=== PATIENT | female | born 1930 | race Two or more races ===

== ENCOUNTER 2017-11-15 06:36 | Emergency (ER) | payer OTHER ==
[~2017-11-15] VITALS: Ht 149.9 cm; Wt 61.2 kg
[2017-11-15 06:43] VITALS: Ht 149.9 cm; Wt 61.2 kg
[2017-11-15 08:32] VITALS: BP 154/62
== END 2017-11-15 08:37 | disposition home or self-care (01) ==
LOC: ED 06:36
DX: S01.81XA Laceration without foreign body of other part of head, initial encounter (principal); E78.00 Pure hypercholesterolemia, unspecified; I25.2 Old myocardial infarction; Z86.73 Personal history of transient ischemic attack (TIA), and cerebral infarction without residual deficits; W22.8XXA Striking against or struck by other objects, initial encounter; Y93.89 Activity, other specified; Y99.8 Other external cause status; Y92.89 Other specified places as the place of occurrence of the external cause

== ENCOUNTER 2018-03-12 21:10 | Emergency (ER) | payer OTHER ==
[~2018-03-12] VITALS: Ht 152.4 cm; Wt 55.8 kg
[2018-03-12 21:27] VITALS: Ht 152.4 cm; Wt 55.8 kg
[2018-03-12 23:34] VITALS: BP 135/76
== END 2018-03-12 23:34 | disposition home or self-care (01) ==
LOC: ED 21:10
DX: R04.0 Epistaxis (principal); E78.00 Pure hypercholesterolemia, unspecified; E11.9 Type 2 diabetes mellitus without complications; F03.90 Unspecified dementia, unspecified severity, without behavioral disturbance, psychotic disturbance, mood disturbance, and anxiety; I25.2 Old myocardial infarction

== ENCOUNTER 2018-05-11 13:32 | Inpatient (IN) | payer OTHER ==
[~2018-05-11] VITALS: Ht 147.3 cm; Wt 46.0 kg
[2018-05-11 13:33] VITALS: Ht 147.3 cm; Wt 46.0 kg
[2018-05-11 14:50] LABS: BASOPHIL % 0.2 % (0-2)
[2018-05-11 14:56] LABS: PLATELET COUNT 129 x10^3mcL (130-400); RED CELL DISTRIBUTION WIDTH 15.5 % (11.5-14.5)
[2018-05-11 15:04] LABS: ALBUMIN 4.2 g/dL (3.4-5.0); ALKALINE PHOSPHATASE 109 U/L (46-116); ALT/SGPT 21 U/L (14-59); AST/SGOT 19 U/L (15-37); BILIRUBIN TOTAL 0.6 mg/dL (0.20-1.00); CALCIUM 9.5 mg/dL (8.5-10.1); CARBON DIOXIDE 31.5 mmol/L (21-32); CHLORIDE SERUM 101 mmol/L (98-107); POTASSIUM SERUM 4.8 mmol/L (3.5-5.1); SODIUM SERUM 141 mmol/L (136-145)
[2018-05-11 15:06] LABS: TOTAL PROTEIN, SERUM 8.5 g/dL (6.4-8.2)
[2018-05-11 15:11] LABS: UA SPECIFIC GRAVITY <=1.005 (1.005-1.035); microscopic required? YES; urine erythrocyte TRACE (NEGATIVE)
[2018-05-11] MEDS ORDERED: FUROSEMIDE20 MG PO (15:23)
[2018-05-11] MEDS ORDERED: LISINOPRIL10 MG PO (15:23)
[2018-05-11] MEDS ORDERED: LIPI10 PO (15:23)
[2018-05-11] MEDS ORDERED: XARELTO10 M1 PO (15:24)
[2018-05-11] MEDS ORDERED: LANTUS SOLOS100 U/M1 SQ (15:28)
[2018-05-11] MEDS ORDERED: ASPIR 8181 MG PO (15:29)
[2018-05-11 15:37] LABS: GLUCOSE SERUM 749 mg/dL (74-106)
[2018-05-11 18:12] VITALS: BP 179/61
[2018-05-11 19:25] VITALS: BP 121/49
[2018-05-11 20:05] LABS: CHOLESTEROL/HDL RATIO 3.1
[2018-05-11 20:15] VITALS: BP 154/46
[2018-05-11 20:45] VITALS: BP 155/50
[2018-05-11 21:08] LABS: MAGNESIUM 2.8 mg/dL (1.8-2.4); PHOSPHOROUS 3.9 mg/dL (2.5-4.9)
[2018-05-12 05:58] VITALS: BP 144/46
[2018-05-12 07:21] LABS: BASOPHIL % 0.4 % (0-2); PLATELET COUNT 134 x10^3mcL (130-400)
[2018-05-12 07:23] LABS: RED CELL DISTRIBUTION WIDTH 15.8 % (11.5-14.5)
[2018-05-12 07:55] LABS: CALCIUM 8.8 mg/dL (8.5-10.1); CARBON DIOXIDE 28.4 mmol/L (21-32); CHLORIDE SERUM 119 mmol/L (98-107); CREATININE SERUM 1.4 mg/dL (0.6-1.0); GLUCOSE SERUM 188 mg/dL (74-106); POTASSIUM SERUM 3.6 mmol/L (3.5-5.1); SODIUM SERUM 158 mmol/L (136-145)
[2018-05-12 08:33] VITALS: BP 155/48
[2018-05-12 17:03] VITALS: BP 180/58
[2018-05-12 18:35] VITALS: BP 154/61
[2018-05-12 18:51] LABS: CALCIUM 8.3 mg/dL (8.5-10.1); CARBON DIOXIDE 25.1 mmol/L (21-32); CHLORIDE SERUM 116 mmol/L (98-107); CREATININE SERUM 1.2 mg/dL (0.6-1.0); GLUCOSE SERUM 215 mg/dL (74-106); POTASSIUM SERUM 3.7 mmol/L (3.5-5.1); SODIUM SERUM 152 mmol/L (136-145)
[2018-05-12 21:00] VITALS: BP 156/63
[2018-05-12 21:09] VITALS: BP 156/63
[2018-05-13 06:05] VITALS: BP 151/65
[2018-05-13 06:20] LABS: CALCIUM 8.2 mg/dL (8.5-10.1); CARBON DIOXIDE 23.6 mmol/L (21-32); CHLORIDE SERUM 115 mmol/L (98-107); CREATININE SERUM 1.2 mg/dL (0.6-1.0); GLUCOSE SERUM 248 mg/dL (74-106); SODIUM SERUM 150 mmol/L (136-145)
[2018-05-13 07:55] LABS: BASOPHIL % 0.4 % (0-2); PLATELET COUNT 134 x10^3mcL (130-400)
[2018-05-13 08:03] LABS: RED CELL DISTRIBUTION WIDTH 15.4 % (11.5-14.5)
[2018-05-13 08:56] VITALS: BP 184/59
[2018-05-13 13:31] VITALS: BP 167/51
[2018-05-13 17:29] VITALS: BP 154/51
[2018-05-13 20:52] VITALS: BP 153/59
[2018-05-14 05:47] VITALS: BP 150/48
[2018-05-14 06:55] LABS: BASOPHIL % 0.6 % (0-2)
[2018-05-14 07:12] LABS: CALCIUM 7.9 mg/dL (8.5-10.1); CHLORIDE SERUM 108 mmol/L (98-107); GLUCOSE SERUM 252 mg/dL (74-106); POTASSIUM SERUM 3.2 mmol/L (3.5-5.1); SODIUM SERUM 142 mmol/L (136-145)
[2018-05-14 07:20] LABS: PLATELET COUNT 116 x10^3mcL (130-400); RED CELL DISTRIBUTION WIDTH 14.7 % (11.5-14.5)
[2018-05-14] MEDS ORDERED: LIPI10 PO ×2 (12:53→12:55)
[2018-05-14] MEDS ORDERED: LISINOPRIL10 MG PO (12:55)
[2018-05-14 13:48] VITALS: BP 120/40
[2018-05-14 13:56] VITALS: BP 120/40
[2018-05-14 13:59] VITALS: BP 120/40
== END 2018-05-14 15:39 | disposition home health service (06) | DRG 637 ==
LOC: ED 13:32 → DU 16:06 → MU 16:06 → DU 05-12 18:39
PROVIDERS: Emergency Medicine; Internal Medicine
DX: E11.00 Type 2 diabetes mellitus with hyperosmolarity without nonketotic hyperglycemic-hyperosmolar coma (NKHHC) (principal); G93.41 Metabolic encephalopathy; N17.0 Acute kidney failure with tubular necrosis; I50.43 Acute on chronic combined systolic (congestive) and diastolic (congestive) heart failure; D68.69 Other thrombophilia; E11.65 Type 2 diabetes mellitus with hyperglycemia; E86.0 Dehydration; I48.91 Unspecified atrial fibrillation; E78.5 Hyperlipidemia, unspecified; H54.8 Legal blindness, as defined in USA; Z66 Do not resuscitate; Z79.4 Long term (current) use of insulin; Z68.28 Body mass index [BMI] 28.0-28.9, adult; Z79.01 Long term (current) use of anticoagulants; Z86.73 Personal history of transient ischemic attack (TIA), and cerebral infarction without residual deficits
CPT/HCPCS: 82962; 83880; 97110-GP; 97116-GP; 97530-GP; J1815; J3490; J7030; Q0092